=== PATIENT | female | born 1995 | race Caucasian/White ===

== ENCOUNTER → 2017-04-20 11:45 | Observation (INO) ==
[2017-04-20 10:21] LABS: Bilirubin,Urine Negative (Negative); Blood,Urine Negative (Negative); Clarity,Urine Cloudy (Clear); Color,Urine Yellow (Yellow); Glucose,Urine (UA) Normal (Normal); Ketones,Urine Negative (Negative); Leukocyte Esterase,Urine Trace (Negative); Nitrite,Urine Negative (Negative); Protein,Urine Negative (Neg-Trace); Specific Gravity,Urine 1.019 (1.010-1.025); Urobilinogen,Urine Normal (Normal)
[2017-04-20 10:23] LABS: Bacteria,Urine None Seen per hpf (None-Few); Hyaline Casts,Urine None Seen per lpf (None-Few); Squamous Epithelial Cell,Urine Many per lpf (None-Few)
[2017-04-20 10:28] LABS: Candida DNA Not Detected (Not Detect); Gardnerella DNA ***DETECTED*** (Not Detect); Trichomonas DNA Not Detected (Not Detect)
--- NOTE | 2017-04-20 11:38 | OB/GYN Progress Note ---
Date of Encounter: 04/20/17 Time of Encounter: 11:32 - Assessment and Plan (1) Encounter for suspected PROM, with rupture of membranes not found Current Visit: Yes Status: Acute Fern and nitrazine negative No cervical change on repeat exams, Pt states cramping resolved with fluid bolus Discharged to home, discussed when to call provider,or return to triage pt verbalizes understanding (2) 23 weeks gestation of Current Visit: Yes Status: Acute Subjective - Subjective Interval history: Pt complains of back pain and intermittent contractions this morning and then felt a "pop" and a gush of fluid. Pt reports good movement. Denies vaginal bleeding. Antepartum ROS: loss of fluid, movement normal, contractions, no vaginal bleeding Objective - Vital Signs Vital Signs: Intake and Output 04/19/17 04/20/17 04/20/17 23:59 07:59 15:59 Other: Weight 100.3 kg Patient Weight 04/20/17 23:59 Weight 100.3 kg - Exam FHR: auscultation normal FHR comments: Appropriate for gestational age Auscultation: bilateral: normal Abdomen: Present: normal appearance, soft, gravid Uterus: Present: normal Cervical dilation: Closed - Labs Labs: Abnormal lab results Urine Clarity Cloudy (Clear) A 04/20/17 10:05 Ur Leukocyte Esterase Trace (Negative) H 04/20/17 10:05 Urine Microscopic RBC 3-5 per hpf (0-3) H 04/20/17 10:05 Urine Microscopic WBC 3-5 per hpf (0-3) H 04/20/17 10:05 Ur Squamous Epith Cells Many per lpf (None-Few) H 04/20/17 10:05 Ur Culture Indicated? YES (NO) A 04/20/17 10:05 Gardnerella DNA Probe DETECTED (Not Detect) A 04/20/17 09:20
[~2017-04-20 11:45] MED LIST: Ringers Solution, Lactated 1,000 ML IVC SCH
== END | disposition home or self-care (01) ==
LOC: 1NENULAB
PROVIDERS: ADMIT Obstetrics & Gynecology; ATTEND Obstetrics & Gynecology

== ENCOUNTER 2017-05-29 16:34 | Observation (INO) ==
[2017-05-29 17:05] LABS: Bilirubin,Urine Negative (Negative); Blood,Urine Negative (Negative); Clarity,Urine Cloudy (Clear); Color,Urine Yellow (Yellow); Glucose,Urine (UA) Normal (Normal); Ketones,Urine Negative (Negative); Leukocyte Esterase,Urine Small (Negative); Nitrite,Urine Negative (Negative); PH,Urine 7.5 pH Units (5.0-8.0); Protein,Urine Trace mg/dL (Neg-Trace); Specific Gravity,Urine 1.024 (1.010-1.025); Urobilinogen,Urine Normal (Normal)
[2017-05-29 17:08] LABS: Squamous Epithelial Cell,Urine Many per lpf (None-Few)
--- NOTE | 2017-05-29 17:16 | OB/GYN Progress Note ---
Date of Encounter: 05/29/17 Time of Encounter: 17:06 - Assessment and Plan (1) 29 weeks gestation of Current Visit: Yes Status: Acute (2) Nasal congestion Current Visit: Yes Status: Acute Recommend use of robitussin and claritin for symptom management. (3) Abdominal pain affecting Current Visit: Yes Status: Acute UA will reflex for culture, denies urinary complaints, cervix closed with no contractions seen on monitor. Will discharge home with med recommendations and labor precautions. Subjective - Subjective Interval history: 29+4 complains of "just not feeling well" Complains of stuffy nose, dehydrated, and abdominal pain. Pt states nasal congestion and abdominal pain started this morning. Reports good movement, denies vaginal bleeding, leaking of fluid or dysuria. Antepartum ROS: new complaints, movement normal, no loss of fluid, no vaginal bleeding, no contractions Objective - Vital Signs Vital Signs: Intake and Output 05/29/17 05/29/17 05/29/17 07:59 15:59 23:59 Other: Weight 103 kg Patient Weight 05/29/17 23:59 Weight 103 kg - Exam FHR: auscultation normal FHR comments: Appropriate for gestational age baseline 145 Abdomen: Present: normal appearance, soft, gravid Uterus: Present: normal Cervical dilation: Closed/thick/long
[2017-05-29 17:18] LABS: Bacteria,Urine Many per hpf (None-Few)
[2017-05-29 17:19] LABS: Amorphous Sediment,Urine Few (Few); Hyaline Casts,Urine Few per lpf (None-Few); RBC,Urine 0-3 per hpf (0-3)
== END 2017-05-29 17:55 | disposition home or self-care (01) ==
LOC: 1NENULAB
PROVIDERS: ADMIT Obstetrics & Gynecology; ATTEND Obstetrics & Gynecology

== ENCOUNTER 2022-02-04 21:28 | Inpatient (IN) ==
[2022-02-04 21:53] LABS: Basophils % 0.2 %; Eosinophils % 0.3 %; Immature Granulocytes % 0.4 % (0-4); Lymphocytes # 6.2 K/mcL (0.6-4.6); Lymphocytes % 39.2 %; Mean Corpuscular HGB Conc 34.2 g/dL (31.6-35.5); Mean Corpuscular Hemoglobin 29.5 pg (28.0-33.3); Mean Corpuscular Volume 86.2 fL (83.0-100.0); Mean Platelet Volume 9.5 fL (9.4-12.4); Monocytes % 6.1 %; Neutrophils # 8.5 K/mcL (1.6-8.9); Platelet Count 355 K/mcL (140-400); Red Blood Count 4.41 M/mcL (3.82-4.97); Red Cell Distribution Width 12.3 % (11.5-14.5); Segmented Neutrophils % 53.8 %; White Blood Count 15.8 K/mcL (4.3-11.1)
[2022-02-04 22:15] LABS: Acetaminophen < 10 mcg/mL (10-20); Alanine Aminotransferase 18 Units/L (7-52); Albumin 3.9 g/dL (3.5-5.7); Albumin/Globulin Ratio 1.4 (1.1-2.2); Alkaline Phosphatase 50 Units/L (34-104); Aspartate Amino Transferase 12 Units/L (13-39); BUN/Creatinine Ratio 15 (6-26); Bilirubin,Indirect 0.4 mg/dL (0.0-1.0); Bilirubin,Total 0.4 mg/dL (0.3-1.0); Blood Urea Nitrogen 14 mg/dL (6-20); Calcium 8.7 mg/dL (8.6-10.3); Carbon Dioxide 23 mEq/L (23-29); Chloride 111 mEq/L (98-107); Ethanol < 10 mg/dL (Less than 10); Globulin 2.7 g/dL (2.4-3.5); Glucose 83 mg/dL (70-105); Osmolality,Calculated 280 (280-300); Potassium 3.3 mEq/L (3.5-5.1); Salicylate < 2.5 mg/dL (15.0-30.0); Sodium 135 mEq/L (136-145); Total Protein 6.6 g/dL (6.4-8.9); eGFR For African Americans > 60 (> 60); eGFR For Non-African Americans > 60 (> 60)
[2022-02-04 22:27] LABS: Thyroid Stimulating Hormone 6.936 mcIU/mL (0.340-5.600)
[2022-02-04 22:43] LABS: Bilirubin,Urine Negative (Negative); Blood,Urine Negative (Negative); Clarity,Urine Clear (Clear); Color,Urine Yellow (Yellow); Glucose,Urine (UA) Normal (Normal); Ketones,Urine Trace mg/dL (Negative); Leukocyte Esterase,Urine Negative (Negative); Nitrite,Urine Negative (Negative); Protein,Urine Trace mg/dL (Neg-Trace); Specific Gravity,Urine > 1.030 (1.010-1.025); Urobilinogen,Urine Normal (Normal)
[2022-02-04 22:56] LABS: Amphetamine Screen,Urine Negative ng/mL (Cutoff=1000); Barbiturate Screen,Urine Negative ng/mL (Cutoff=200); Benzodiazepines Screen,Urine Positive ng/mL (Cutoff=200); Cannabinoid Screen,Urine Negative ng/mL (Cutoff = 50); Cocaine Screen,Urine Negative ng/mL (Cutoff= 300); Opiate Screen,Urine Negative ng/mL (Cutoff=300); Phencyclidine Screen,Urine Negative ng/mL (Cutoff=25)
[2022-02-05 05:17] LABS: Influenza A PCR Negative (Negative); Influenza B PCR Negative (Negative); Resp. Syncytial Virus PCR Negative (Negative)
[2022-02-05 05:19] LABS: SARS-CoV-2 by PCR (In House) Negative (Negative)
[2022-02-05] MEDS ORDERED: *HR* LORazepam 2 MG/ML VIAL IM PRN (05:52)
[2022-02-05] MEDS ORDERED: traZODone 50 MG TABLET PO PRN (05:52)
[2022-02-05] MEDS ORDERED: Haloperidol Lactate 5 MG/ML VIAL IM PRN (05:52)
[2022-02-05] MEDS ORDERED: haloperidoL 5 MG TABLET PO PRN (05:52)
[2022-02-05] MEDS ORDERED: Ibuprofen 400 MG TABLET PO PRN (05:52)
[2022-02-05] MEDS ORDERED: *HR* LORazepam 1 MG TABLET PO PRN (05:52)
[2022-02-05] MEDS ORDERED: hydrOXYzine pamoate 25 MG CAPSULE PO PRN (05:52)
[2022-02-05] MEDS ORDERED: Mag Hydrox/Al Hydrox/Simeth 30 ML UDC PO PRN (08:08)
[2022-02-05] MEDS ORDERED: MOM Conc 10 ML UD.LIQ PO PRN (08:08)
[2022-02-05] MEDS: ARIPiprazole 5 MG TABLET PO SCH (11:10)
[2022-02-05] MEDS: BuPROPion XL (24 HR) 150 MG TABLET PO SCH (11:10)
[2022-02-05] MEDS: Nicotine 2 MG GUM BC PRN (21:37)
[2022-02-05 21:42] VITALS: O2SAT 98
[2022-02-06] MEDS: Nicotine 2 MG GUM BC PRN (09:10)
[2022-02-06] MEDS: BuPROPion XL (24 HR) 150 MG TABLET PO SCH (09:10)
[2022-02-06] MEDS: ARIPiprazole 5 MG TABLET PO SCH (09:10)
[2022-02-06 09:58] VITALS: BP 101/70; PULSE 83; TEMP 97.3
== END 2022-02-06 12:30 | disposition home or self-care (01) | DRG 817 ==
LOC: EMEROOARM 21:28 → 1ANU 02-05 05:43
PROVIDERS: ADMIT Psychiatry & Neurology Psychiatry; ATTEND Psychiatry & Neurology Psychiatry